=== PATIENT | female | born 1945 | race Caucasian/White ===

== ENCOUNTER 2021-06-27 14:13 | Emergency (ER) | payer OTHER ==
[~2021-06-27] VITALS: Ht 162.6 cm; Wt 62.6 kg
[~2021-06-27 14:13] MED LIST: CRESTOR; FISH OIL 1,001000 M2 PO; HCTZ; HYDROCHLOROTH12.5 M1 PO; MOBIC15 MG PO; OMEPRAZOLE; PRILOSEC 20 MG20 MG PO; PROZAC 20 MG20 MG PO; RECLAST 55 MG/100 M IV; SIMVASTATIN; SIMVASTATIN40 MG PO; TOBREX3.5 GM OP; TRAMADOL 50 MG50 MG PO; VITAMIN D1000 UNI1 PO; VITAMINC500 PO
[2021-06-27] MEDS ORDERED: LISINOPRIL20 MG PO (14:21)
[2021-06-27 15:35] LABS: ABSOLUTE EOSINOPHILS 0.1 thou/uL (0.0-0.7); ABSOLUTE LYMPHOCYTES 1.2 thou/uL (0.8-5.3); ABSOLUTE MONOCYTES 0.3 thou/uL (0.0-1.2); ABSOLUTE NEUTROPHILS 3.1 thou/uL (1.6-8.1); BASOPHILS 0.4 %; EOSINOPHILS 1.5 %; HEMATOCRIT 35.7 % (37.0-47.0); HEMOGLOBIN 12.2 gm/dL (12.0-15.0); LYMPHOCYTES 25.3 %; MCH 32.4 pg (26.0-34.0); MCHC 34.3 g/dL (28.0-37.0); MCV 94.5 fL (80.0-100.0); MONOCYTES 6.9 %; MPV 7.4 fl. (7.2-11.1); NUCLEATED RBCS 0 /100WBC; PLATELET COUNT* 167 thou/uL (150-400); POLYS 65.9 %; RBC 3.78 mil/uL (4.20-5.00); RDW-CV 12.7 % (10.5-14.5); WBC 4.8 thou/uL (4.0-11.0)
[2021-06-27 15:47] LABS: CREATININE 0.7 mg/dL (0.6-1.3); POTASSIUM 3.9 mmol/L (3.5-5.1)
[2021-06-27 15:58] LABS: ALBUMIN 4.1 g/dL (3.4-5.0); TOTAL BILIRUBIN 0.4 mg/dL (<0.1-1.0); TOTAL PROTEIN 7.6 g/dL (6.4-8.2)
[2021-06-27] MEDS ORDERED: FLUOXETINE HCL20 M1 PO (16:53)
[2021-06-27 17:15] VITALS: BP 140/120
--- NOTE | 2021-06-28 09:59 | EKG ---
[place] [address] ELECTROCARDIOGRAM REPORT Name: LESLEY ORTEGA [id number] Admission: 06/27/21 Attend Phys: Discharge: 06/27/21 Date of : 47 Date of Service: 06/27/21 1458 Report #: [id number] THIS REPORT FOR: //name// [facility] ED Test Date: 2021-06-27 Test Time: 14:58:53 Pat Name: LESLEY ORTEGA Department: Room: Gender: [employer] Professor: : 1945 Requested By: Micheline Thompson Order Number: [id number] MD: Logan Hernandez Measurements Intervals [place] Rate: 73 P: 67 DE: 174 QRS: 55 QRSD: 99 T: 75 QT: 428 QTc: 472 Interpretive Statements Sinus rhythm No previous ECG available for comparison Electronically Signed On 06-28-2021 9:59:19 [employer] by Logan Hernandez [email or web address] <ELECTRONICALLY SIGNED> By: Logan Hernandez MD, [facility] 06/28/21 0959 1458 145 Logan Hernandez MD, FACC /EPI
== END 2021-06-27 17:15 | disposition home or self-care (01) ==
LOC: M.ERS 14:13
PROVIDERS: Physician Assistant
DX: I10 Essential (primary) hypertension (principal); F41.9 Anxiety disorder, unspecified; E78.00 Pure hypercholesterolemia, unspecified; K21.9 Gastro-esophageal reflux disease without esophagitis; F32.9 Major depressive disorder, single episode, unspecified; Z79.899 Other long term (current) drug therapy